=== PATIENT | male | born 2000 | race Caucasian/White ===

== ENCOUNTER 2020-12-06 16:30 | Emergency (ER) | payer OTHER, SELFPAY ==
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
[2020-12-06 18:34] VITALS: BP 112/57; PULSE 60; RESP 14; TEMP 36.3; O2SAT 99
[2020-12-06 18:40] VITALS: BMI 22.1
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
== END 2020-12-06 20:05 | disposition home or self-care (01) ==
PROVIDERS: Emergency Provider Emergency Medicine
DX: S90.32XA Contusion of left foot, initial encounter (principal); X50.1XXA Overexertion from prolonged static or awkward postures, initial encounter; Y93.9 Activity, unspecified; Y92.410 Unspecified street and highway as the place of occurrence of the external cause; Y99.9 Unspecified external cause status
CPT/HCPCS: 73630; 99283